=== PATIENT | male | born 1940 | race Hispanic/Latino ===

== ENCOUNTER 2022-10-12 15:20 | Observation (INO) | payer MEDICARE ==
[~2022-10-12] VITALS: Ht 154.9 cm; Wt 67.3 kg
[~2022-10-12 15:20] MED LIST: ASPI-556 PO; ATOR40TA69 PO; METF-446 PO; SITA25TA5 PO; VIT B-12 PO
[2022-10-12 16:02] LABS: BASOPHILS % (AUTO) 0.3 % (0.0-5.0); EOSINOPHILS % (AUTO) 2.3 % (0.0-8.0); LYMPHOCYTES % (AUTO) 19.6 % (21.0-51.0); MEAN CORPUSCULAR HEMOGLOBIN 31.5 pg (27.0-33.0); MEAN CORPUSCULAR VOLUME 95.3 fL (79-99); NEUTROPHILS % (AUTO) 69.3 % (40.0-77.0); PLATELET COUNT (AUTO) 204 K/uL (130-400); RED BLOOD CELL COUNT(AUTO) 4.51 MIL/uL (4.50-6.20); RED CELL DISTRIBUTION WIDTH 12.3 % (11.0-15.5)
[2022-10-12 16:20] LABS: ALBUMIN 4.2 g/dL (3.5-5.0); TOTAL PROTEIN, SERUM 7.7 g/dL (6.0-8.3)
[2022-10-12 17:39] LABS: APPEARANCE,URINE CLEAR (CLEAR); BILIRUBIN,URINE NEGATIVE (NEGATIVE); COLOR,URINE LIGHT-YELLOW (YELLOW); GLUCOSE, URINE (UA) >=1000 mg/dL (NEGATIVE); KETONES,URINE NEGATIVE (NEGATIVE); LEUKOCYTE ESTERASE ,URINE NEGATIVE Leu/uL (NEGATIVE); NITRATE,URINE NEGATIVE (NEGATIVE); OCCULT BLOOD,URINE NEGATIVE (NEGATIVE); PROTEIN,URINE NEGATIVE (NEGATIVE); UROBILINOGEN,URINE 0.2 mg/dL (0.2-1.0)
[2022-10-12 17:42] LABS: RBC,URINE 0-1 /HPF (0-1); WBC,URINE 0-1 /HPF (0-1)
[2022-10-12] MEDS ORDERED: 0.9% NACL 500ML IV.SOLN 500 ML IV ONE (19:30)
[2022-10-12] MEDS ORDERED: POTASSIUM CHLORIDE 10% ELIXIR 20 MEQ/15 ML UDCUP PO PRN (20:30)
[2022-10-12] MEDS ORDERED: LIDOCAINE HCL-MPF 1% 2ML VIAL IV PRN (20:30)
[2022-10-12] MEDS ORDERED: POTASSIUM CHLORIDE 20MEQ/100ML 100 ML IV PRN (20:30)
[2022-10-12] MEDS ORDERED: HYDROCODONE/ACETAMINOPHEN 5/325 MG TAB PO PRN (20:30)
[2022-10-12] MEDS ORDERED: MORPHINE 2 MG SYG IV PRN (20:30)
[2022-10-12] MEDS ORDERED: KCL 20 MEQ ERTAB PO PRN (20:30)
[2022-10-12] MEDS ORDERED: MAGNESIUM 2GM PREMIX 50ML 50 ML IV PRN (20:30)
[2022-10-12] MEDS ORDERED: ONDANSETRON 4MG INJ IV PRN (20:30)
[2022-10-12] MEDS ORDERED: ACETAMINOPHEN 325 MG TAB PO PRN ×2 (20:30)
[2022-10-13 06:20] VITALS: BP 173/86
[2022-10-13 06:29] LABS: BASOPHILS % (AUTO) 0.3 % (0.0-5.0); EOSINOPHILS % (AUTO) 1.1 % (0.0-8.0); LYMPHOCYTES % (AUTO) 22.5 % (21.0-51.0); MEAN CORPUSCULAR HEMOGLOBIN 31.2 pg (27.0-33.0); MEAN CORPUSCULAR HGB CONC 32.3 g/dL (32.0-36.0); MEAN CORPUSCULAR VOLUME 96.7 fL (79-99); MONOCYTES % (AUTO) 5.3 % (3.0-13.0); NEUTROPHILS % (AUTO) 70.5 % (40.0-77.0); PLATELET COUNT (AUTO) 190 K/uL (130-400); RED BLOOD CELL COUNT(AUTO) 4.55 MIL/uL (4.50-6.20); RED CELL DISTRIBUTION WIDTH 12.3 % (11.0-15.5); WHITE BLOOD COUNT (AUTO) 7.4 K/uL (4.8-10.8)
[2022-10-13] MEDS ORDERED: OMEP40CA21 PO (06:36)
[2022-10-13] MEDS ORDERED: LISI10TA24 PO (06:36)
[2022-10-13] MEDS ORDERED: EMPA10TA PO (06:36)
[2022-10-13 06:45] LABS: CREATININE 0.9 mg/dL (0.5-1.5); MAGNESIUM 1.7 mg/dL (1.80-2.40); PHOSPHORUS 3.4 mg/dL (2.5-4.9); POTASSIUM 4.1 mmol/L (3.5-5.1)
[2022-10-13] MEDS ORDERED: FAMOTIDINE 20MG TAB PO SCH (09:00)
[2022-10-13] MEDS ORDERED: ENOXAPARIN SODIUM 40 MG/0.4 ML SYRINGE SQ SCH (09:00)
[2022-10-13 12:00] VITALS: BP 158/79
[2022-10-13] MEDS ORDERED: NON-FORMULARY MEDICATION 1 EACH (Metformin HCl 1,000 MG) PO SCH (17:00)
[2022-10-13] MEDS ORDERED: METFORMIN HCL 500 MG TABLET PO SCH (17:00)
[2022-10-13] MEDS ORDERED: LISINOPRIL 10 MG TABLET PO SCH (21:00)
[2022-10-13] MEDS ORDERED: ATORVASTATIN 40 MG TABLET PO SCH (21:00)
[2022-10-14] MEDS ORDERED: EMPAGLIFLOZIN 10MG TABLET PO SCH (09:00)
[2022-10-14] MEDS ORDERED: PANTOPRAZOLE 40 MG TAB DR PO SCH (09:00)
[2022-10-14] MEDS ORDERED: ASPIRIN 81 MG EC TAB PO SCH (09:00)
== END 2022-10-13 13:35 | disposition home or self-care (01) ==
LOC: EDH 15:20 → EDHIP 20:08 → INTOOBSV 20:08 → 3CH 10-13 05:45
PROVIDERS: ADMIT Internal Medicine; ATTEND Internal Medicine
DX: R42 Dizziness and giddiness (principal); Z20.822 Contact with and (suspected) exposure to COVID-19; R00.2 Palpitations; R55 Syncope and collapse; I11.0 Hypertensive heart disease with heart failure; I50.22 Chronic systolic (congestive) heart failure; I25.10 Atherosclerotic heart disease of native coronary artery without angina pectoris; E11.9 Type 2 diabetes mellitus without complications; E78.00 Pure hypercholesterolemia, unspecified; E78.5 Hyperlipidemia, unspecified; Z87.891 Personal history of nicotine dependence; Z79.82 Long term (current) use of aspirin; Z95.1 Presence of aortocoronary bypass graft; Z95.5 Presence of coronary angioplasty implant and graft; Z95.810 Presence of automatic (implantable) cardiac defibrillator; Z51.5 Encounter for palliative care; Z79.899 Other long term (current) drug therapy
CPT/HCPCS: 99284; 96360; 87635; 84484; 80053; 85025 ×2; 81001; 36415 ×2; 93005; 97161; 97116; 96372; 83735; 84100; 80048; 82948; 97039; C9803; G0378; J1650

== ENCOUNTER 2022-12-17 09:37 | Observation (INO) | payer MEDICARE ==
[2022-12-16 10:27] LABS: BASOPHILS % (AUTO) 0.3 % (0.0-5.0); EOSINOPHILS % (AUTO) 1.2 % (0.0-8.0); HEMATOCRIT 40.7 % (42-54); MEAN CORPUSCULAR HEMOGLOBIN 31.2 pg (27.0-33.0); MEAN CORPUSCULAR HGB CONC 32.4 g/dL (32.0-36.0); MEAN CORPUSCULAR VOLUME 96.2 fL (79-99); MONOCYTES % (AUTO) 5.7 % (3.0-13.0); NEUTROPHILS % (AUTO) 78.4 % (40.0-77.0); PLATELET COUNT (AUTO) 204 K/uL (130-400); RED BLOOD CELL COUNT(AUTO) 4.23 MIL/uL (4.50-6.20); RED CELL DISTRIBUTION WIDTH 12.3 % (11.0-15.5); WHITE BLOOD COUNT (AUTO) 7.7 K/uL (4.8-10.8)
[2022-12-16 10:39] LABS: INR 0.99 (0.85-1.15); POTASSIUM 4.8 mmol/L (3.5-5.1); PROTHROMBIN TIME 10.8 SEC (9.6-11.6)
[2022-12-16 10:40] LABS: PARTIAL THROMBOPLASTIN TIME 28.5 SEC (26.3-35.5)
[2022-12-16 13:40] VITALS: BP 173/64
[2022-12-17] VITALS (10 sets, daily range): BP systolic 119–170; BP diastolic 57–86
[~2022-12-17] VITALS: Ht 162.6 cm; Wt 68.0 kg
[~2022-12-17 09:37] MED LIST changes: +0.9% NACL 500ML IV.SOLN 500 ML IV SCH; -ASPI-556 PO; +CARV3.12 PO; +CEFAZOLIN SODIUM 2 GM VIAL IVPB SCH; +LISI2.5T13 PO; +PIOG15TA66 PO; -SITA25TA5 PO; -VIT B-12 PO
[2022-12-17] MEDS ORDERED: 0.9%NACL 1000ML 1,000 ML IV ONE (09:53)
[2022-12-17] MEDS ORDERED: METO-408 PO (11:04)
[2022-12-17] MEDS ORDERED: OMEP40CA21 PO (11:04)
[2022-12-17] MEDS ORDERED: LIDOCAINE HCL 1% MDV 50ML VIAL ONE (14:39)
[2022-12-17] MEDS ORDERED: CEFAZOLIN SODIUM 1 GM VIAL ONE (14:39)
[2022-12-17] MEDS ORDERED: BUPIVACAINE/PF 0.25% 10ML VIAL IJ ONE (14:39)
[2022-12-17] MEDS ORDERED: MEPERIDINE-PF 25 MG/ML SYG ONE (15:00)
[2022-12-17] MEDS ORDERED: MIDAZOLAM HCL 1 MG/ML 2ML VIAL ONE (15:00)
[2022-12-17] MEDS ORDERED: BACITRACIN 1 EACH PACKET TP ONE (15:45)
[2022-12-17] MEDS ORDERED: TRAM50TA4 PO (16:17)
[2022-12-17] MEDS ORDERED: ACETAMINOPHEN 500 MG TABLET PO PRN (16:30)
[2022-12-17] MEDS ORDERED: ACETAMINOPHEN WITH CODEINE 1 TAB TAB PO PRN (16:30)
[2022-12-18 04:22] VITALS: BP 140/63
[2022-12-18 07:04] VITALS: BP 112/61
[2022-12-18 11:06] VITALS: BP 140/73
== END 2022-12-18 13:30 | disposition home or self-care (01) ==
LOC: DAH 09:37 → 2DH 09:38
PROVIDERS: ADMIT Internal Medicine Cardiovascular Disease; ATTEND Internal Medicine Cardiovascular Disease
DX: Z45.02 Encounter for adjustment and management of automatic implantable cardiac defibrillator (principal); I44.2 Atrioventricular block, complete; I11.0 Hypertensive heart disease with heart failure; I50.22 Chronic systolic (congestive) heart failure; E11.9 Type 2 diabetes mellitus without complications; I25.10 Atherosclerotic heart disease of native coronary artery without angina pectoris; E78.5 Hyperlipidemia, unspecified; Z79.899 Other long term (current) drug therapy; Z98.890 Other specified postprocedural states; Z79.84 Long term (current) use of oral hypoglycemic drugs; Z79.82 Long term (current) use of aspirin
CPT/HCPCS: 80048; 85025; 85610; 85730; 36415; 93005; 33264; 82948 ×2; C1882; G0378 ×20; G0379; J0690; J7030; J2250; J3490 ×2; J2175; A4215; A4223 ×3; A4222; A4221; A4663; A4216; A4606; 33263; 99156; 99157; C1721